=== PATIENT | female | born 1975 | race Caucasian/White ===

== ENCOUNTER 2019-09-29 13:57 | Emergency (ER) | payer OTHER ==
[~2019-09-29] VITALS: Ht 167.6 cm; Wt 82.1 kg
[~2019-09-29 13:57] MED LIST: AMOXICILLIN 50500 M1 PO; AMOXICILLIN500 M1 PO; CLEOCIN HCL150 MG PO; CLEOCIN HCL300 MG PO; CYCLOBENZAPRINE10 MG PO; FISH OIL 1,0001 EAC5; FLEXERIL PO; IBUPROFEN 800800 M1 PO; IBUPROFEN 800800 MG PO; IBUPROFEN200 M2; MEDROLDOSEPACK PO; MULTIVITAMINS; NORCO 5-325 TA1 EAC1 PO; NORCO 5-325 TA1 EACH PO; OMEGA-31000 M1 PO; OMEGA-31000 MG; PENICILLIN VK250 MG PO; PERCOCET 5-3251 EACH PO; PREDNISONE 20 M20 M1 PO; PROMETH-CODEIN 65 ML PO; ROBAXIN500 MG PO; THRIVE TRANSDERM; ULTRAM 50MG TAB50 MG PO; VENTOLIN HFA 1818 GM INH; WOMEN'S DAILY1 EAC1 PO; WOMEN'S MULTI1 EACH; ZPAK PO
[2019-09-29] MEDS ORDERED: NEURONTIN300 MG PO (15:39)
[2019-09-29] MEDS ORDERED: NAPROSYN500 MG PO (15:39)
[2019-09-29 16:04] VITALS: BP 165/82
== END 2019-09-29 16:05 | disposition home or self-care (01) ==
LOC: M.ERS 13:57
DX: G56.21 Lesion of ulnar nerve, right upper limb (principal); M19.90 Unspecified osteoarthritis, unspecified site; F41.9 Anxiety disorder, unspecified; Z90.710 Acquired absence of both cervix and uterus; Z88.8 Allergy status to other drugs, medicaments and biological substances; Z91.013 Allergy to seafood

== ENCOUNTER → 2019-10-09 | Outpatient (CLI) | payer OTHER ==
[~2019-10-09] MED LIST changes: +NAPROSYN500 MG PO; +NEURONTIN300 MG PO
[2019-10-10 14:09] LABS: ANA INTERPRETATION Negative (Negative)
== END ==
LOC: M.LAB 15:14
PROVIDERS: Orthopaedic Surgery
DX: M25.50 Pain in unspecified joint (principal); M06.9 Rheumatoid arthritis, unspecified